=== PATIENT | female | born 1965 | race Caucasian/White ===

== ENCOUNTER → 2021-12-01 | Outpatient (CLI) | payer SELFPAY ==
[~2021-12-01] MED LIST: CRUTCH2 USE; OXYACE5T; OXYACE5T PO; OXYC5 PO
[2021-12-01 18:19] LABS: BASOPHILS ABSOLUTE AUTO 0.05 K/mm3 (0.00-0.23); BASOPHILS PERCENT AUTO 1 % (0-2); EOSINOPHILS PERCENT AUTO 2 % (0-6); Hemoglobin 14.3 g/dL (11.5-16.0); IMMATURE GRAN ABSOLUTE AUTO 0.05 K/mm3 (0.00-0.10); IMMATURE GRAN PERCENT AUTO 1 % (0-1); LYMPHOCYTES ABSOLUTE AUTO 2.34 K/mm3 (0.84-5.20); LYMPHOCYTES PERCENT AUTO 29 % (21-46); MONOCYTES ABSOLUTE AUTO 0.57 K/mm3 (0.16-1.47); MONOCYTES PERCENT AUTO 7 % (4-13); Mean Corpuscular HGB 32.6 pg (26.0-34.0); Mean Corpuscular Volume 96 fL (80-100); Mean Platelet Volume 10.3 fL (9.1-12.4); NEUTROPHILS ABSOLUTE AUTO 4.98 K/mm3 (1.96-9.15); NEUTROPHILS PERCENT AUTO 61 % (41-73); Platelet Count 238 K/mm3 (150-400); RDW Coefficient Variation 12.8 % (11.7-14.2); RDW Standard Deviation 44.8 fL (35.1-46.3); Red Blood Cell Count 4.39 M/mm3 (3.80-5.20); White Blood Cell Count 8.19 K/mm3 (4.00-11.30)
[2021-12-01 18:28] LABS: Alanine Aminotransfer (ALT/SGP 33 U/L (12-78); Albumin/Globulin Ratio 1.1 (0.8-1.8); Alk Phos 100 U/L (40-126); Anion Gap 8 mmol/L (6-16); Aspartate Aminotrans (AST/SGOT 41 U/L (12-37); Bilirubin, Total 0.5 mg/dL (0.1-1.0); Blood Urea Nitrogen 18 mg/dL (8-24); CO2, Blood 30 mmol/L (21-32); Calcium, Blood 9.6 mg/dL (8.5-10.1); Chloride, Blood 104 mmol/L (98-108); Creatinine, Blood 0.72 mg/dL (0.40-1.00); Globulin, Blood 3.5 g/dL (2.2-4.0); Glomerular Filtration Rate >60 (60-); Glucose, Blood 117 mg/dL (70-99); Sodium, Blood 142 mmol/L (136-145); Total Protein, Blood 7.5 g/dL (6.4-8.2)
== END | disposition home or self-care (01) ==
LOC: LAB SHORT 18:12
PROVIDERS: Physician Assistant
DX: R07.89 Other chest pain (principal)
CPT/HCPCS: 80053; 84484; 85025; 85379

== ENCOUNTER → 2022-01-27 | Outpatient (CLI) | payer SELFPAY ==
[2022-01-28 13:30] LABS: Candida species (DNA Probe) Negative (NEGATIVE); G. vaginalis (DNA Probe) Negative (NEGATIVE); T. vaginalis (DNA Probe) Negative (NEGATIVE)
[2022-01-31 15:08] LABS: HPV 16 Negative (Negative); HPV 18 Negative (Negative); HPV OTHER HR TYPES Negative (Negative)
== END | disposition home or self-care (01) ==
LOC: LAB SHORT 12:57 → LAB 12:57
PROVIDERS: Advanced Practice Midwife
DX: Z01.419 Encounter for gynecological examination (general) (routine) without abnormal findings (principal); B37.3 Candidiasis of vulva and vagina
CPT/HCPCS: 87480; 87510; 87624; 87660; G0123

== ENCOUNTER 2024-12-29 07:03 | Emergency (ER) | payer OTHER ==
[~2024-12-29] VITALS: Ht 160 cm; Wt 102.1 kg
[2024-12-29 08:19] VITALS: BP 227/103
[2024-12-29] MEDS ORDERED: Ketorolac Tromethamine 15mg Vial IV ONE (08:25)
== END 2024-12-29 09:50 | disposition home or self-care (01) ==
LOC: ER 07:03
DX: S92.351A Displaced fracture of fifth metatarsal bone, right foot, initial encounter for closed fracture (principal); Z96.7 Presence of other bone and tendon implants; Z88.8 Allergy status to other drugs, medicaments and biological substances; Z88.1 Allergy status to other antibiotic agents; X58.XXXA Exposure to other specified factors, initial encounter
CPT/HCPCS: 73630; 99283-25

== ENCOUNTER 2025-01-19 11:17 | Day surgery (SDC) | payer OTHER ==
[~2025-01-19] VITALS: Ht 160 cm; Wt 87.4 kg
[2025-01-19] MEDS ORDERED: LOSA50 PO (11:52)
[2025-01-19] MEDS ORDERED: BUSPIRONE HCL5 M6 PO (11:52)
[2025-01-19] MEDS ORDERED: PROAIR DIGIHAL90 MCG IH (11:53)
[2025-01-19] MEDS ORDERED: Aspir 8181 MG PO (11:54)
[2025-01-19] MEDS ORDERED: MELO7.5 (11:54)
[2025-01-19] MEDS ORDERED: Bupivacaine 0.5% W/EPI 1:200000 SDV 30 ML Vial ONE (11:54)
[2025-01-19] MEDS ORDERED: Lidocaine HCl 2% 10 ML SDA ONE (11:54)
[2025-01-19] MEDS ORDERED: VITAMIN D32000 UNIT PO (11:55)
[2025-01-19] MEDS ORDERED: HYDCHL25 PO (11:56)
--- NOTE | 2025-01-19 12:16 | NUR ---
01/19/[address] ARROYO NOTIFIED OF PT ELEVATED BP 215/98 LAST BP 1215
[2025-01-19] MEDS ORDERED: Lactated Ringer's 1,000 ML IV ONE (12:21)
[2025-01-19] MEDS ORDERED: CeFAZolin Sodium 2,000 MG VIAL ONE (12:21)
[2025-01-19] MEDS ORDERED: NS 50 ML IV ONE (12:23)
[2025-01-19] MEDS ORDERED: Midazolam HCl 1MG / ML 2ML Vial ONE ×3 (12:24→12:57)
[2025-01-19] MEDS ORDERED: FentaNYL Citrate 50 MCG/ML 2 ML Injection ONE (12:24)
[2025-01-19] MEDS ORDERED: propofoL 20 ML IV ONE (12:24)
[2025-01-19] MEDS ORDERED: Dexmedetomidine HCL 200 MCG / 2 ML ONE (12:52)
[2025-01-19 13:46] VITALS: BP 151/69
== END 2025-01-19 14:40 | disposition home or self-care (01) ==
LOC: ORSCSDS 11:17
PROVIDERS: Podiatrist Foot & Ankle Surgery
PROC: 0QSN04Z Reposition Right Metatarsal with Internal Fixation Device, Open Approach (ICD-10-PCS; principal; 2025-01-19 12:45)
DX: S92.351A Displaced fracture of fifth metatarsal bone, right foot, initial encounter for closed fracture (principal); W18.30XA Fall on same level, unspecified, initial encounter; E11.9 Type 2 diabetes mellitus without complications; I10 Essential (primary) hypertension; Z79.899 Other long term (current) drug therapy; Z79.82 Long term (current) use of aspirin
CPT/HCPCS: 82947; A6253; C1713; J0690; J2003; J2250; J2704; J3010; J7120